=== PATIENT | female | born 1960 ===

== ENCOUNTER → 2022-08-02 | Outpatient (CLI) | payer MEDICARE, MEDICAID ==
[~2022-08-02] VITALS: Ht 162.6 cm; Wt 68.0 kg
[~2022-08-02] MED LIST: ADENOSINE 57 MG in GIVE UN-DILUTED 0 ML IV ONE; ADENOSINE 90 MG/30 ML INJ IV ONE
== END | disposition home or self-care (01) ==
LOC: Rad HDHVI 12:50
PROVIDERS: ATTEND Internal Medicine Cardiovascular Disease
DX: I35.8 Other nonrheumatic aortic valve disorders (principal); I70.203 Unspecified atherosclerosis of native arteries of extremities, bilateral legs; I25.10 Atherosclerotic heart disease of native coronary artery without angina pectoris; I48.0 Paroxysmal atrial fibrillation; R06.02 Shortness of breath; E11.21 Type 2 diabetes mellitus with diabetic nephropathy; E11.40 Type 2 diabetes mellitus with diabetic neuropathy, unspecified; I10 Essential (primary) hypertension; E78.00 Pure hypercholesterolemia, unspecified; R42 Dizziness and giddiness; F17.210 Nicotine dependence, cigarettes, uncomplicated; Z82.49 Family history of ischemic heart disease and other diseases of the circulatory system
CPT/HCPCS: 78452; 93005; 93306; 93925; 96374; 96375; A9500; J0153

== ENCOUNTER → 2022-09-15 | Outpatient (CLI) | payer MEDICARE, MEDICAID ==
[~2022-09-15] VITALS: Ht 162.6 cm; Wt 70.9 kg
[~2022-09-15] MED LIST changes: -ADENOSINE 57 MG in GIVE UN-DILUTED 0 ML IV ONE; -ADENOSINE 90 MG/30 ML INJ IV ONE; +cloNIDine HCL 0.1 MG TAB ONE; +cloNIDine HCL 0.1 MG TAB PO ONE
[2022-09-15 12:49] VITALS: BP 225/86
[2022-09-15 13:07] VITALS: BP 226/94
== END | disposition home or self-care (01) ==
LOC: CHF HDHVI 12:51
PROVIDERS: ATTEND Internal Medicine Cardiovascular Disease
DX: I10 Essential (primary) hypertension (principal)
CPT/HCPCS: G0463

== ENCOUNTER → 2023-01-17 | Outpatient (CLI) | payer MEDICARE, MEDICAID ==
[~2023-01-17] MED LIST changes: +IOHEXOL 350 MG/ML 100ML IJ ONE; -cloNIDine HCL 0.1 MG TAB ONE; -cloNIDine HCL 0.1 MG TAB PO ONE
[2023-01-17 12:38] VITALS: BP 164/72
[2023-01-17 13:07] VITALS: BP 174/73
== END | disposition home or self-care (01) ==
LOC: Rad HDHVI 12:12
PROVIDERS: ATTEND Internal Medicine Cardiovascular Disease
DX: N26.1 Atrophy of kidney (terminal) (principal); J98.11 Atelectasis; K57.30 Diverticulosis of large intestine without perforation or abscess without bleeding; K56.41 Fecal impaction; K42.9 Umbilical hernia without obstruction or gangrene; I70.1 Atherosclerosis of renal artery
CPT/HCPCS: 74175; G0463; Q9967

== ENCOUNTER → 2023-02-13 | Outpatient (CLI) | payer OTHER ==
[~2023-02-13] MED LIST changes: +ACETAMINOPHEN 500 MG TAB PO ONE; +AMLO-496 PO; +ASPI1TAB19 PO; +CILO100T PO; +CLON0.3T PO; +CLOP75TA70 PO; +CYCL-611 PO; +FLUT50AE IN; +HYDR-4798 PO; -IOHEXOL 350 MG/ML 100ML IJ ONE; +ISOS1TAB28 PO; +METF-370 PO; +METO25TA93 PO; +PANT40T PO; +PANT40TA2 PO; +PRAM0.5T2 PO; +SACU1TAB4 PO; +SERT-160 PO; +SERT-377 PO; +SIMV10TA84 PO
[2023-02-13 10:38] VITALS: BP 157/73
[2023-02-13 11:00] VITALS: BP 137/63
== END | disposition home or self-care (01) ==
LOC: CHF HDHVI 10:19
PROVIDERS: ATTEND Internal Medicine Cardiovascular Disease
DX: Z01.818 Encounter for other preprocedural examination (principal); R94.31 Abnormal electrocardiogram [ECG] [EKG]; I70.1 Atherosclerosis of renal artery; I10 Essential (primary) hypertension; I73.9 Peripheral vascular disease, unspecified
CPT/HCPCS: 93005; G0463

== ENCOUNTER 2023-02-14 11:32 | Inpatient (IN) | payer OTHER, MEDICAID ==
[2023-02-13 13:20] LABS: Eosinophils # (auto) 0.2 10 ^3/uL (0-0.8); Hemoglobin 11.1 g/dL (12.2-16.2); Monocytes # (auto) 0.6 10 ^3/uL (0-1.3); White Blood Cell 11.1 10^3/uL (4.4-10.8)
[2023-02-13 13:22] LABS: Basophils # (auto) 0.1 10 ^3/uL (0-0.2); Basophils % (auto) 0.6 % (0.0-2.0); Eosinophils % (auto) 1.7 % (0.0-7.0); Hematocrit 34.2 % (36.0-46.0); Lymphocytes % (auto) 26.9 % (10.0-50.0); Mean Corpuscular Hemoglobin 25.1 pg (28.0-32.0); Mean Corpuscular Hgb Conc. 32.6 g/dL (32.0-36.0); Mean Corpuscular Volume 77.1 fL (80.0-100.0); Neutrophils # (auto) 7.3 10 ^3/uL (1.6-8.6); Neutrophils % (auto) 65.8 % (37.0-80.0); Red Blood Cells 4.43 10^6/uL (4.0-5.20); Red Cell Distribution Width 17.4 % (11.8-14.3)
[2023-02-13 13:36] LABS: INR 0.97 (0.9-1.15); Partial Thromboplastin Time 29.1 sec (24.6-33.4)
[2023-02-13 14:39] LABS: Calcium 9.1 mg/dL (8.5-10.1)
[~2023-02-14] VITALS: Ht 162.6 cm; Wt 72.5 kg
[~2023-02-14 11:32] MED LIST changes: -ACETAMINOPHEN 500 MG TAB PO ONE; -PANT40TA2 PO; -SERT-377 PO
[2023-02-14] MEDS ORDERED: LIDOCAINE 2%HCL (LOCAL ANESTH.) INJ 10ml MDV ONE (15:44)
[2023-02-14] MEDS ORDERED: IOHEXOL 350 MG/ML 100ML IJ ONE (15:44)
[2023-02-14] MEDS ORDERED: fentaNYL CITRATE 100 MCG/2 ML VL ONE (15:49)
[2023-02-14] MEDS ORDERED: ANGIOMAX 250 MG VIAL IV ONE (15:49)
[2023-02-14] MEDS ORDERED: MIDAZOLAM HCL 2MG/2ML 2ml VIAL (1mg/ml) ONE (15:50)
[2023-02-14] MEDS ORDERED: SODIUM CHL 0.9% 50 ML ONE (15:50)
[2023-02-14] MEDS ORDERED: CLOPIDOGREL 300 MG TAB ONE (16:27)
[2023-02-14] MEDS ORDERED: hydrALAZINE HCL 20 MG/ML VL ONE (16:40)
[2023-02-14] MEDS ORDERED: HYDROmorphone HCL 2 MG/ML VL/or syr IV ONE (17:15)
[2023-02-14 19:30] VITALS: BP 109/70
[2023-02-14] MEDS: HYDROcodone-ACET 5/325MG TAB PO PRN (20:43)
[2023-02-14 22:00] VITALS: BP 140/82
[2023-02-14] MEDS: SODIUM CHLOR 0.9% PF (SALINE LOCK) 10ML VIAL/SYR IV SCH (22:00)
[2023-02-14] MEDS: SACUBITRIL VALSARTAN PO SCH (22:00)
[2023-02-14] MEDS: cloNIDine HCL 0.1 MG TAB PO SCH (22:42)
[2023-02-14] MEDS: PRAMIPEXOLE DIHYDROCHLORIDE MO 0.25 MG TAB PO SCH (22:42)
[2023-02-14] MEDS: CILOSTAZOL 100 MG TAB PO SCH (22:42)
[2023-02-14] MEDS: CYCLOBENZAPRINE HCL 10 MG TAB PO SCH (22:42)
[2023-02-14] MEDS: HYDROmorphone HCL 2 MG/ML VL/or syr IV PRN (23:07)
[2023-02-15] VITALS (7 sets, daily range): BP systolic 99–125; BP diastolic 53–70
[2023-02-15] MEDS: HYDROcodone-ACET 5/325MG TAB PO PRN ×3 (04:21→21:40)
[2023-02-15] MEDS: SODIUM CHLOR 0.9% PF (SALINE LOCK) 10ML VIAL/SYR IV SCH ×3 (06:00→21:36)
[2023-02-15] MEDS: PANTOPRAZOLE 40 MG TAB PO SCH (06:41)
[2023-02-15] MEDS: ISOSORBIDE MONONITRATE ER 60 MG TAB PO SCH (06:41)
[2023-02-15] MEDS: METOPROLOL SUCCINATE XL 50 MG TAB PO SCH (08:00)
[2023-02-15] MEDS: amLODIPine BESYLATE 5 MG TAB PO SCH (08:00)
[2023-02-15] MEDS: SERTRALINE HCL 50 MG TAB PO SCH (09:37)
[2023-02-15] MEDS: ASPirin-EC 81 mg tab PO SCH (09:37)
[2023-02-15] MEDS: CILOSTAZOL 100 MG TAB PO SCH ×2 (09:37→21:38)
[2023-02-15] MEDS: CLOPIDOGREL BISULFATE 75 MG TAB PO SCH (09:38)
[2023-02-15] MEDS: cloNIDine HCL 0.1 MG TAB PO SCH ×2 (10:00→21:37)
[2023-02-15] MEDS: SACUBITRIL VALSARTAN PO SCH ×2 (10:00→21:37)
[2023-02-15] MEDS: SIMVASTATIN PO SCH (18:00)
[2023-02-15] MEDS: CYCLOBENZAPRINE HCL 10 MG TAB PO SCH (21:38)
[2023-02-15] MEDS: PRAMIPEXOLE DIHYDROCHLORIDE MO 0.25 MG TAB PO SCH (22:00)
[2023-02-16] VITALS (14 sets, daily range): BP systolic 94–145; BP diastolic 56–81
[2023-02-16] MEDS: HYDROmorphone HCL 2 MG/ML VL/or syr IV PRN ×2 (05:01→18:41)
[2023-02-16] MEDS: SODIUM CHLOR 0.9% PF (SALINE LOCK) 10ML VIAL/SYR IV SCH ×3 (06:15→22:33)
[2023-02-16] MEDS: ISOSORBIDE MONONITRATE ER 60 MG TAB PO SCH (06:23)
[2023-02-16] MEDS: PANTOPRAZOLE 40 MG TAB PO SCH (06:24)
[2023-02-16] MEDS: METOPROLOL SUCCINATE XL 50 MG TAB PO SCH (07:00)
[2023-02-16] MEDS: amLODIPine BESYLATE 5 MG TAB PO SCH (07:00)
[2023-02-16 09:05] LABS: Hematocrit 18.7 % (36.0-46.0); Mean Corpuscular Hemoglobin 25.2 pg (28.0-32.0); Mean Corpuscular Volume 81.3 fL (80.0-100.0); Red Cell Distribution Width 18.3 % (11.8-14.3)
[2023-02-16 09:19] LABS: Hemoglobin 5.8 g/dL (12.2-16.2)
[2023-02-16 09:21] LABS: Basophils % (manual) 0 (0.0-2.0); Blast Cells 0; Eosinophils % (manual) 0 (0-7); Myelocytes % 0; Promyelocytes % 0; Reactive Lymphocytes 0
[2023-02-16 09:29] LABS: Lactic Acid w/Reflex 4.1 mmol/L (0.4-2.0)
[2023-02-16] MEDS: CILOSTAZOL 100 MG TAB PO SCH ×2 (10:00→22:25)
[2023-02-16] MEDS: cloNIDine HCL 0.1 MG TAB PO SCH ×2 (10:00→22:27)
[2023-02-16] MEDS: SERTRALINE HCL 50 MG TAB PO SCH (10:00)
[2023-02-16] MEDS: ASPirin-EC 81 mg tab PO SCH (10:00)
[2023-02-16] MEDS: CLOPIDOGREL BISULFATE 75 MG TAB PO SCH (10:00)
[2023-02-16] MEDS: SACUBITRIL VALSARTAN PO SCH ×2 (10:00→22:00)
[2023-02-16] MEDS ORDERED: IOHEXOL 300 MG/ML 100ML BOTTLE IJ ONE (10:20)
[2023-02-16 10:45] LABS: BUN/Creatinine Ratio 14.5 (10.0-20.0); Calcium 8.2 mg/dL (8.5-10.1)
[2023-02-16 10:46] LABS: Magnesium 2.2 mg/dL (1.6-2.6)
[2023-02-16 11:18] LABS: Hematocrit 20.5 % (36.0-46.0)
[2023-02-16 11:36] LABS: Band Neutrophils % (manual) 3; Lymphocytes % (manual) 15 (10.0-50.0); Metamyelocytes % 1; Monocytes % (manual) 3 (0-12)
[2023-02-16] MEDS: SODIUM CHLORIDE 0.9% 1,000 ML IV SCH (12:22)
[2023-02-16] MEDS: HYDROcodone-ACET 5/325MG TAB PO PRN ×2 (14:46→20:35)
[2023-02-16] MEDS: SIMVASTATIN PO SCH ×2 (17:38→18:00)
[2023-02-16] MEDS: CYCLOBENZAPRINE HCL 10 MG TAB PO SCH (22:25)
[2023-02-16] MEDS: PRAMIPEXOLE DIHYDROCHLORIDE MO 0.25 MG TAB PO SCH (22:27)
[2023-02-17] MEDS: HYDROmorphone HCL 2 MG/ML VL/or syr IV PRN ×4 (03:07→22:14)
[2023-02-17] MEDS: SODIUM CHLORIDE 0.9% 1,000 ML IV SCH ×4 (04:38→17:07)
[2023-02-17 05:00] VITALS: BP 144/61
[2023-02-17 05:11] LABS: Basophils # (auto) 0.2 10 ^3/uL (0-0.2); Basophils % (auto) 0.8 % (0.0-2.0); Eosinophils # (auto) 0 10 ^3/uL (0-0.8); Eosinophils % (auto) 0.1 % (0.0-7.0); Hematocrit 29.9 % (36.0-46.0); Lymphocytes # (auto) 2.1 10 ^3/uL (0.4-5.4); Lymphocytes % (auto) 9.1 % (10.0-50.0); Mean Corpuscular Hemoglobin 27.7 pg (28.0-32.0); Mean Corpuscular Hgb Conc. 33.3 g/dL (32.0-36.0); Mean Corpuscular Volume 83.1 fL (80.0-100.0); Monocytes # (auto) 1.9 10 ^3/uL (0-1.3); Monocytes % (auto) 8.1 % (0.0-12.0); Neutrophils # (auto) 19.1 10 ^3/uL (1.6-8.6); Neutrophils % (auto) 81.9 % (37.0-80.0); White Blood Cell 23.3 10^3/uL (4.4-10.8)
[2023-02-17] MEDS: SODIUM CHLOR 0.9% PF (SALINE LOCK) 10ML VIAL/SYR IV SCH ×3 (06:00→22:00)
[2023-02-17] MEDS: ISOSORBIDE MONONITRATE ER 60 MG TAB PO SCH (06:10)
[2023-02-17] MEDS: amLODIPine BESYLATE 5 MG TAB PO SCH (06:12)
[2023-02-17] MEDS: PANTOPRAZOLE 40 MG TAB PO SCH (06:12)
[2023-02-17] MEDS: METOPROLOL SUCCINATE XL 50 MG TAB PO SCH (06:12)
[2023-02-17 09:00] VITALS: BP 123/58
[2023-02-17] MEDS: SACUBITRIL VALSARTAN PO SCH ×2 (09:16→22:00)
[2023-02-17] MEDS: SERTRALINE HCL 50 MG TAB PO SCH (09:34)
[2023-02-17] MEDS: HYDROcodone-ACET 5/325MG TAB PO PRN (09:34)
[2023-02-17] MEDS: cloNIDine HCL 0.1 MG TAB PO SCH ×2 (09:35→21:48)
[2023-02-17] MEDS: ASPirin-EC 81 mg tab PO SCH (10:00)
[2023-02-17] MEDS: CILOSTAZOL 100 MG TAB PO SCH ×2 (10:00→21:49)
[2023-02-17] MEDS: CLOPIDOGREL BISULFATE 75 MG TAB PO SCH (12:42)
[2023-02-17 13:00] VITALS: BP 128/62
[2023-02-17 17:00] VITALS: BP 124/63
[2023-02-17] MEDS: SIMVASTATIN PO SCH ×2 (17:40→18:00)
[2023-02-17] MEDS: DOCUSATE SOD 100 MG CAP PO PRN (17:54)
[2023-02-17] MEDS: PRAMIPEXOLE DIHYDROCHLORIDE MO 0.25 MG TAB PO SCH (21:47)
[2023-02-17] MEDS: CYCLOBENZAPRINE HCL 10 MG TAB PO SCH (21:49)
[2023-02-17 22:00] VITALS: BP 114/64
[2023-02-18] MEDS: SODIUM CHLORIDE 0.9% 1,000 ML IV SCH ×2 (02:28→14:02)
[2023-02-18 05:00] VITALS: BP 110/62
[2023-02-18] MEDS: SODIUM CHLOR 0.9% PF (SALINE LOCK) 10ML VIAL/SYR IV SCH ×3 (05:01→21:39)
[2023-02-18] MEDS: HYDROmorphone HCL 2 MG/ML VL/or syr IV PRN ×3 (06:02→20:36)
[2023-02-18] MEDS: PANTOPRAZOLE 40 MG TAB PO SCH (06:15)
[2023-02-18] MEDS: amLODIPine BESYLATE 5 MG TAB PO SCH (06:15)
[2023-02-18] MEDS: METOPROLOL SUCCINATE XL 50 MG TAB PO SCH (06:16)
[2023-02-18] MEDS: ISOSORBIDE MONONITRATE ER 60 MG TAB PO SCH (06:18)
[2023-02-18 09:00] VITALS: BP 108/65
[2023-02-18] MEDS: SACUBITRIL VALSARTAN PO SCH ×2 (10:00→22:00)
[2023-02-18] MEDS: ASPirin-EC 81 mg tab PO SCH (10:00)
[2023-02-18] MEDS: cloNIDine HCL 0.1 MG TAB PO SCH ×2 (10:00→21:39)
[2023-02-18] MEDS: CILOSTAZOL 100 MG TAB PO SCH ×2 (10:00→21:39)
[2023-02-18] MEDS: SERTRALINE HCL 50 MG TAB PO SCH (10:06)
[2023-02-18] MEDS: CLOPIDOGREL BISULFATE 75 MG TAB PO SCH (10:07)
[2023-02-18] MEDS: DOCUSATE SOD 100 MG CAP PO PRN (10:07)
[2023-02-18 13:00] VITALS: BP 112/61
[2023-02-18 17:00] VITALS: BP 129/71
[2023-02-18] MEDS: HYDROcodone-ACET 5/325MG TAB PO PRN (17:01)
[2023-02-18] MEDS: SIMVASTATIN PO SCH (17:59)
[2023-02-18] MEDS: CYCLOBENZAPRINE HCL 10 MG TAB PO SCH (21:39)
[2023-02-18] MEDS: PRAMIPEXOLE DIHYDROCHLORIDE MO 0.25 MG TAB PO SCH (21:58)
[2023-02-18 22:00] VITALS: BP 124/47
[2023-02-19] MEDS: HYDROmorphone HCL 2 MG/ML VL/or syr IV PRN ×2 (01:01→06:24)
[2023-02-19] MEDS: DOCUSATE SOD 100 MG CAP PO PRN (01:06)
[2023-02-19 05:00] VITALS: BP 103/55
[2023-02-19] MEDS: SODIUM CHLORIDE 0.9% 1,000 ML IV SCH ×2 (05:39→09:30)
[2023-02-19] MEDS: SODIUM CHLOR 0.9% PF (SALINE LOCK) 10ML VIAL/SYR IV SCH ×2 (05:46→14:00)
[2023-02-19] MEDS: amLODIPine BESYLATE 5 MG TAB PO SCH (06:21)
[2023-02-19] MEDS: ISOSORBIDE MONONITRATE ER 60 MG TAB PO SCH (06:22)
[2023-02-19] MEDS: PANTOPRAZOLE 40 MG TAB PO SCH (06:22)
[2023-02-19] MEDS: METOPROLOL SUCCINATE XL 50 MG TAB PO SCH (06:23)
[2023-02-19 09:00] VITALS: BP 123/72
[2023-02-19] MEDS: ASPirin-EC 81 mg tab PO SCH (10:00)
[2023-02-19] MEDS: cloNIDine HCL 0.1 MG TAB PO SCH (10:00)
[2023-02-19] MEDS: CILOSTAZOL 100 MG TAB PO SCH (10:00)
[2023-02-19] MEDS: SERTRALINE HCL 50 MG TAB PO SCH (10:00)
[2023-02-19] MEDS: CLOPIDOGREL BISULFATE 75 MG TAB PO SCH (10:00)
[2023-02-19] MEDS: SACUBITRIL VALSARTAN PO SCH (10:00)
[2023-02-19] MEDS: HYDROcodone-ACET 5/325MG TAB PO PRN (11:24)
[2023-02-19 13:00] VITALS: BP 135/73
[2023-02-19 17:00] VITALS: BP 144/96
[2023-02-19] MEDS: SIMVASTATIN PO SCH (18:00)
== END 2023-02-19 19:08 | disposition home or self-care (01) | DRG 674 ==
LOC: CATH 11:32 → OVERFLOW 19:14 → CENTRAL 19:15 → TELE-CENTR 02-16 09:58
PROVIDERS: ADMIT Internal Medicine; ATTEND Internal Medicine Cardiovascular Disease
PROC: 047A34Z Dilation of Left Renal Artery with Drug-eluting Intraluminal Device, Percutaneous Approach (ICD-10-PCS; principal; 2023-02-14)
PROC: B4181ZZ Fluoroscopy of Bilateral Renal Arteries using Low Osmolar Contrast (ICD-10-PCS; 2023-02-14)
PROC: B41C1ZZ Fluoroscopy of Pelvic Arteries using Low Osmolar Contrast (ICD-10-PCS; 2023-02-14)
PROC: B4101ZZ Fluoroscopy of Abdominal Aorta using Low Osmolar Contrast (ICD-10-PCS; 2023-02-14)
PROC: 30233N1 Transfusion of Nonautologous Red Blood Cells into Peripheral Vein, Percutaneous Approach (ICD-10-PCS; 2023-02-16)
DX: N28.0 Ischemia and infarction of kidney (principal); I16.1 Hypertensive emergency; S37.019A Minor contusion of unspecified kidney, initial encounter; I10 Essential (primary) hypertension; E78.5 Hyperlipidemia, unspecified; J44.9 Chronic obstructive pulmonary disease, unspecified; N26.1 Atrophy of kidney (terminal); D64.9 Anemia, unspecified; E11.51 Type 2 diabetes mellitus with diabetic peripheral angiopathy without gangrene; F17.210 Nicotine dependence, cigarettes, uncomplicated; I95.9 Hypotension, unspecified; Z91.199 Patient's noncompliance with other medical treatment and regimen due to unspecified reason
CPT/HCPCS: 36415; 36600; 37236; 71045; 74177; 80048; 82140; 82805; 82962; 83605; 83735; 83880; 85007; 85014; 85018; 85025; 85027; 85610; 85730; 86850; 86900; 86901; 86920; 99152; 99153; G0378; J2001; J2250